=== PATIENT | female | born 1965 | race Caucasian/White ===

== ENCOUNTER 2022-04-01 15:33 | Emergency (ER) | payer BC, SELFPAY ==
[2022-04-01 15:41] VITALS: BP 124/100; PULSE 89; RESP 20; TEMP 36.1; O2SAT 97; BMI 41.6
[2022-04-01 16:00] VITALS: BP 120/75; PULSE 82; RESP 18; O2SAT 96
--- NOTE | 2022-04-01 16:12 | CRLHL7_ITS ---
For Patients: As a result of the Century Cures Act, medical imaging exams and procedure reports are released immediately into your electronic medical record. You may view this report before your referring provider. If you have questions, please contact your health care provider. Indication: Pain on right side, nausea and yellowing of eyes Technique: Volumetric multidetector CT images of the abdomen and pelvis were obtained after the administration of intravenous contrast. 122 cc Isovue 370 low osmolar intravenous contrast Comparison: CT abdomen and pelvis November 07, 2021 Findings: There is minimal basilar atelectasis and parenchymal scar. The liver is markedly enlarged with mild attic steatosis. There is demonstration of a large peripheral nodular enhancing lesion within the inferior lateral right liver measuring 5.7 centimeters commensurate with a large hemangioma well characterized on comparison exam. The portal vein is patent. The gallbladder is unremarkable without evidence of radiopaque calculus. There is no significant common biliary ductal dilatation or abrupt cut off. The spleen is normal in enhancement and size. There is mild thickening of the gastric antrum commensurate with mild chronic gastritis change. The pancreas is normal in enhancement without significant atrophy. The adrenal glands are unremarkable. The kidneys demonstrate preserved corticomedullary differentiation without evidence of obstructive uropathy. There is moderate stool seen throughout the colon with minimal distal colonic diverticulosis with a somewhat decompressed distal colon. The appendix is unremarkable. There is no significant mesenteric, retroperitoneal, or pelvic sidewall lymph nodes. The aorta is nonaneurysmal. There is no significant atherosclerotic disease appreciated. There is prior hysterectomy. There is no free fluid or free air. Postoperative changes of the low anterior abdomen status post likely ventral hernia repair are appreciated. The lumbar vertebral body heights are grossly maintained with mild degenerative disc disease. There is mild facet arthrosis. Impression: Redemonstration of a large hemangioma within the liver with mild hepatic steatosis. Otherwise, no evidence of overt inflammatory changes. Otherwise no definite acute intra-abdominal abnormalities appreciated. Please note that all CT scans at this facility use dose modulation, iterative reconstruction, and/or weight-based dosing when appropriate to reduce radiation dose to as low as reasonably achievable. Dictated by Miguel Ángel Perez MD @ 04/01/2022 5:50:11 PM (Electronically Signed)
--- NOTE | 2022-04-01 16:15 | ED.ABDPAIN ---
HPI - Abdominal Pain General Chief Complaint: Abdominal Pain Stated Complaint: Liver Testing Time Seen by Provider: 04/01/22 16:00 History of Present Illness HPI narrative: This 56-year-old female comes in reporting some swelling in her feet over the past month and now in the past 2-3 days she has been having some nausea with diarrhea she has abdominal pain after taking food. Family members thought that she had yellow jaundice like color in her eyes yesterday. Prior to this she has been in good health. She does not report any fevers. Related Data Home Medications Medication Instructions Recorded Confirmed amlodipine 5 mg tablet mg 04/01/22 colestipol 1 gram tablet g PO 04/01/22 Allergies Allergy/AdvReac Type Severity Reaction Status Date / Time No Known Drug Allergies Allergy Verified 04/01/22 15:56 Review of Systems Status of ROS Reports: 10 or more systems reviewed and unremarkable except as noted in History and below Narrative Constitutional: No fevers, no weight gain or loss. Eyes: No discharge. No vision changes. HENT: No congestion, no sore throat, no ear pain. Cardiovascular: No chest pain, no palpitations. Respiratory: No shortness of breath, no wheezes, no cough. Gastrointestinal: She reports episodes of abdominal pain after taking food. Genitourinary: No dysuria, no hematuria. Musculoskeletal: Normal range of motion. Skin: No rashes, no pruritis. Neurological: No dizziness, weakness, sensory change, speech change. Endo/Heme/Allergies: No bruising or bleeding. No polydipsia. Pysch: no suicidality, no anxiety, no insomnia. All other systems reviewed and are negative. PFSH PFS Social History Smoking Status: Former smoker Do you use any of these nicotine containing products: None Second hand tobacco smoke exposure: No How often do you have a drink containing alcohol: monthly or less How many standard drinks containing alcohol do you have on a typical day: 1 or 2 How often do you have six or more drinks on one occasion: Never AUDIT-C Alcohol total score: 1 Non-prescribed substance use: denies use Exam Narrative: Exam Narrative: Constitutional: Well-developed, well-nourished, no acute distress. HEENT: Normocephalic, atraumatic. Neck: Normal range of motion. Nontender. Supple. Heart: Regular. No murmurs. Normal rate. Intact distal pulses. Lungs: Clear to auscultation. No chest discomfort. No wheezes, rhonchi, or rales. Abdomen: Normal bowel sounds. Mild tenderness more localized in the right upper quadrant No rebound tenderness. Genitalia: Deferred. Back: No midline tenderness. Normal range of motion. Extremities: Normal range of motion. No injury. Skin: Intact. No rash. Warm. No erythema or pallor. Neurologic: No altered sensation. No weakness. Alert and oriented. Psychiatric: No suicidality. No anxiety or depression. No insomnia. Nursing notes and vitals signs are reviewed. Const: Vital Signs, click to edit/add: Vital Signs - 24 hr 04/01/22 15:41 Temperature 96.9 F L Pulse Rate [Pulse Oximeter] 89 Respiratory Rate 20 Blood Pressure [Ri ght Upper Arm] 124/100 H Pulse Oximetry 97 Course Vital Signs Vital signs: Initial Vital Signs Temperature 96.9 F L 04/01/22 15:41 Temperature Source Temporal Artery Scan 04/01/22 15:41 Pulse Rate 89 04/01/22 15:41 Pulse Rhythm 04/01/22 15:41 Respiratory Rate 20 04/01/22 15:41 Blood Pressure 124/100 H 04/01/22 15:41 Blood Pressure Mean 108 04/01/22 15:41 Blood Pressure Position Supine 04/01/22 15:41 Pulse Oximetry 97 04/01/22 15:41 Oxygen Delivery Method 04/01/22 15:41 Vital Signs Temperature 96.9 F L 04/01/22 15:41 Pulse Rate 89 04/01/22 15:41 Respiratory Rate 20 04/01/22 15:41 Blood Pressure 124/100 H 04/01/22 15:41 Pulse Oximetry 97 04/01/22 15:41 Temperature 96.9 F L 04/01/22 15:41 Pulse Rate 89 04/01/22 15:41 Respiratory Rate 20 04/01/22 15:41 Blood Pressure 124/100 H 04/01/22 15:41 Pulse Oximetry 97 04/01/22 15:41 MDM - Abdominal Pain MDM Narrative Medical decision making narrative: This patient comes in with concern about some occasions of abdominal pain and wonders if there is something wrong with her liver or if she might have had some jaundiced. She currently has normal exam and has no sign of jaundice or scleral icterus. An IV was established and labs were drawn along with a size scan for CT imaging of the abdomen. These all returned with reassuring findings. Her CT scan does show a large hemangioma in her liver which the patient had known about previously. She is reassured with these findings and feels okay to return home, happy that there is not any bad news on the scan results and lab results. Lab Data Labs: Lab Results 04/01/22 04/01/22 04/01/22 Range/Units 16:12 16:15 16:15 WBC 6.62 (4.50-11.00) K/uL RBC 4.73 (4.00-5.20) m/uL Hgb 14.5 (12.0-16.0) gm/dL Hct 42.9 (33.0-51.0) % MCV 91 (80-100) fL MCH 31 (26-34) pg MCHC 34 (32-36) gm/dL RDW Coeff of Rebeca 11.9 (11.5-15.5) % Plt Count 232 (140-440) K/uL Neut % (Auto) 59.3 (42.0-72.0) % Lymph % (Auto) 28.1 (20-44) % [place] % (Auto) 7.3 (0.0-11.0) % Eos % (Auto) 3.6 (0.0-7.0) % Baso % (Auto) 0.8 (0.0-3.0) % Neut # (Auto) 3.93 (1.7-7.0) K/uL Lymph # (Auto) 1.86 (0.90-2.90) K/uL [place] # (Auto) 0.50 (0.00-0.90) K/UL Eos # (Auto) 0.24 (0.00-0.50) K/uL Baso # (Auto) 0.05 (0.00-0.30) K/uL Abs Immat Gran (auto) 0.06 (0.00-0.30) K/uL Sodium (135-149) mmol/L Potassium (3.6-5.1) mmol/L Chloride (96-114) mmol/L Carbon Dioxide (20-32) mmol/L BUN (7-30) mg/dL Creatinine (0.5-1.5) mg/dL Estimated Creat Clear Estimated GFR ml/min Glucose (60-115) mg/dL Calcium (8.4-10.6) mg/dL Total Bilirubin (0.1-1.5) mg/dL Direct Bilirubin (0.0-0.5) mg/dL AST (12-35) U/L ALT (4-35) U/L Alkaline Phosphatase (40-150) U/L Total Protein (6.0-8.3) g/dL Albumin (3.3-5.0) g/dL Lipase (23-300) U/L HCG, Qual Negative (Negative) Urine Color Yellow (Yellow) Urine Appearance Clear (Clear) Urine pH 5.0 (5.0-8.5) Ur Specific Gideon >= 1.030 (1.000-1.030) Urine Protein Negative (Negative) Urine Glucose (UA) Negative (Negative) Urine Ketones Negative (Negative) Urine Blood Trace-intact A (Negative) Urine Nitrite Negative (Negative) Urine Bilirubin Negative (Negative) Urine Urobilinogen 0.2 (0.2-1.0) Ur Leukocyte Esterase Trace A (Negative) Urine RBC 0-2 (0-2) Urine WBC 2-5 (0-5) Urine WBC Clumps None (None) Ur Squamous Epith Cells Few (None-Few) Calcium Oxalate Crystal Few A (None) Urine Bacteria Few A (None) 04/01/22 Range/Units 16:40 WBC (4.50-11.00) K/uL RBC (4.00-5.20) m/uL Hgb (12.0-16.0) gm/dL Hct (33.0-51.0) % MCV (80-100) fL MCH (26-34) pg MCHC (32-36) gm/dL RDW Coeff of Rebeca (11.5-15.5) % Plt Count (140-440) K/uL Neut % (Auto) (42.0-72.0) % Lymph % (Auto) (20-44) % [place] % (Auto) (0.0-11.0) % Eos % (Auto) (0.0-7.0) % Baso % (Auto) (0.0-3.0) % Neut # (Auto) (1.7-7.0) K/uL Lymph # (Auto) (0.90-2.90) K/uL [place] # (Auto) (0.00-0.90) K/UL Eos # (Auto) (0.00-0.50) K/uL Baso # (Auto) (0.00-0.30) K/uL Abs Immat Gran (auto) (0.00-0.30) K/uL Sodium 139 (135-149) mmol/L Potassium 3.6 (3.6-5.1) mmol/L Chloride 106 (96-114) mmol/L Carbon Dioxide 25 (20-32) mmol/L BUN 19 (7-30) mg/dL Creatinine 0.6 (0.5-1.5) mg/dL Estimated Creat Clear 94.21 Estimated GFR 105 ml/min Glucose 131 H (60-115) mg/dL Calcium 8.9 (8.4-10.6) mg/dL Total Bilirubin 0.2 (0.1-1.5) mg/dL Direct Bilirubin 0.2 (0.0-0.5) mg/dL AST 24 (12-35) U/L ALT 24 (4-35) U/L Alkaline Phosphatase 136 (40-150) U/L Total Protein 6.7 (6.0-8.3) g/dL Albumin 4.2 (3.3-5.0) g/dL Lipase 144 (23-300) U/L HCG, Qual (Negative) Urine Color (Yellow) Urine Appearance (Clear) Urine pH (5.0-8.5) Ur Specific Gideon (1.000-1.030) Urine Protein (Negative) Urine Glucose (UA) (Negative) Urine Ketones (Negative) Urine Blood (Negative) Urine Nitrite (Negative) Urine Bilirubin (Negative) Urine Urobilinogen (0.2-1.0) Ur Leukocyte Esterase (Negative) Urine RBC (0-2) Urine WBC (0-5) Urine WBC Clumps (None) Ur Squamous Epith Cells (None-Few) Calcium Oxalate Crystal (None) Urine Bacteria (None) Imaging Data CT scan - abdomen: Radiologist's impression: Redemonstration of a large hemangioma within the liver with mild hepatic steatosis. Otherwise, no evidence of overt inflammatory changes. Otherwise no definite acute intra-abdominal abnormalities appreciated. Discharge Plan Discharge Clinical Impression: Abdominal pain Patient Disposition: Home, Self-Care Condition: Stable Instructions: Abdominal Pain (ED) Additional Instructions: Continue current plans. Follow up with MD or return if worsening symptoms happen. Prescriptions: No Action amlodipine 5 mg tablet 0RF Label Comments: TAKE 1 TABLET BY MOUTH DAILY colestipol 1 gram tablet PO 0RF Follow Up/Referrals: Oscar Landeros PA-C [Primary Care Provider] - Stand Alone Forms: [employer] Info Instructions
[2022-04-01 16:46] LABS: Appearance Urine Clear (Clear); Bilirubin Urine Negative (Negative); Blood Urine Trace-intact (Negative); Color Urine Yellow (Yellow); Glucose Urine Negative (Negative); Ketones Urine Negative (Negative); Leukocyte Esterase Urine Trace (Negative); Nitrite Urine Negative (Negative); Protein Urine Negative (Negative); Specific Gravity Urine >= 1.030 (1.000-1.030); Urobilinogen Urine 0.2 (0.2-1.0)
[2022-04-01 17:01] LABS: Basophils Absolute Auto 0.05 K/uL (0.00-0.30); Basophils Percent Auto 0.8 % (0.0-3.0); Eosinophils Absolute Auto 0.24 K/uL (0.00-0.50); Eosinophils Percent Auto 3.6 % (0.0-7.0); Hematocrit 42.9 % (33.0-51.0); Hemoglobin* 14.5 gm/dL (12.0-16.0); Immature Granulocytes Abs Auto 0.06 K/uL (0.00-0.30); Lymphocytes Absolute Auto 1.86 K/uL (0.90-2.90); Lymphocytes Percent Auto 28.1 % (20-44); Mean Corpuscular HGB Conc 34 gm/dL (32-36); Mean Corpuscular Hemoglobin 31 pg (26-34); Mean Corpuscular Volume 91 fL (80-100); Monocytes Percent Auto 7.3 % (0.0-11.0); Neutrophils Absolute Auto 3.93 K/uL (1.7-7.0); Neutrophils Percent Auto 59.3 % (42.0-72.0); Platelet Count* 232 K/uL (140-440); RDW Coefficient of Variation % 11.9 % (11.5-15.5); Red Blood Count 4.73 m/uL (4.00-5.20); White Blood Count* 6.62 K/uL (4.50-11.00)
[2022-04-01 17:09] LABS: Slide Review Reflex No
[2022-04-01 17:22] LABS: Albumin* 4.2 g/dL (3.3-5.0); Chloride* 106 mmol/L (96-114); Potassium* 3.6 mmol/L (3.6-5.1); Sodium* 139 mmol/L (135-149)
[2022-04-01 17:23] LABS: RBC Urine 0-2 (0-2)
[2022-04-01 17:24] LABS: Creatinine* 0.6 mg/dL (0.5-1.5); Est. Creatinine Clearance* 94.21; Estimated Glomerular Filt Rate 105 ml/min
[2022-04-01 17:24] LABS: Bacteria Urine Few; Calcium Oxalate Crystals Urine Few; Squamous Epithelial Cell Urine Few (None-Few)
[2022-04-01 17:25] LABS: Alanine Aminotransferase* 24 U/L (4-35); Alkaline Phosphatase* 136 U/L (40-150); Aspartate Amino Transferase* 24 U/L (12-35); Bilirubin Direct* 0.2 mg/dL (0.0-0.5); Bilirubin Total* 0.2 mg/dL (0.1-1.5); Blood Urea Nitrogen* 19 mg/dL (7-30); Calcium* 8.9 mg/dL (8.4-10.6); Carbon Dioxide* 25 mmol/L (20-32); Glucose* 131 mg/dL (60-115); Lipase* 144 U/L (23-300); Total Protein* 6.7 g/dL (6.0-8.3)
[2022-04-01 18:00] VITALS: BP 127/81; PULSE 79; RESP 20; O2SAT 96
== END 2022-04-01 18:33 | disposition home or self-care (01) ==
PROVIDERS: Emergency Provider Emergency Medicine Emergency Medical Services; PCP Physician Assistant Medical
DX: R10.9 Unspecified abdominal pain (principal)
CPT/HCPCS: 36415; 74177; 80048; 80076; 81001; 81003; 83690; 84703; 85025; 87086; 87186; 99284; 99285; Q9967

== ENCOUNTER 2022-05-22 13:40 | Outpatient (CLI) | payer BC, SELFPAY | END 2022-05-22 13:41 | disposition home or self-care (01) | LOC: LKVREF 05-29 09:54 | PROVIDERS: PCP Physician Assistant Medical; Visit Provider Nurse Practitioner Family | DX: N39.0 Urinary tract infection, site not specified (principal) | CPT/HCPCS: 87086; 87186 ==